=== PATIENT | female | born 1970 | race African-American/Black ===

== ENCOUNTER 2018-11-12 22:38 | Emergency (ER) | payer OTHER, SELFPAY ==
[2018-11-13] MEDS ORDERED: Dexamethasone 4 MG TAB ONE (00:23)
[2018-11-13] MEDS ORDERED: hydrOXYzine 25 MG TAB ONE (00:23)
== END 2018-11-13 01:09 | disposition left against medical advice (07) ==
LOC: ERS 22:38
DX: F41.9 Anxiety disorder, unspecified (principal); F32.9 Major depressive disorder, single episode, unspecified; R22.0 Localized swelling, mass and lump, head; F17.210 Nicotine dependence, cigarettes, uncomplicated
CPT/HCPCS: 99283; J8540

== ENCOUNTER 2022-04-14 10:57 | Outpatient (CLI) | payer OTHER | END 2022-04-14 10:58 | disposition home or self-care (01) | LOC: BICRAD 10:57 | PROVIDERS: ATTEND Family Medicine | DX: M25.441 Effusion, right hand (principal) ==